=== PATIENT | female | born 1990 | race Caucasian/White ===

== ENCOUNTER 2025-05-24 19:25 | Inpatient (IN) ==
--- NOTE | 2025-05-24 20:05 | Emergency Department Note ---
Impression & Plan Depression, Acute cystitis ED Provider Note NAME: AUSTIN AIKEN AGE: 35 SEX: F : 1990 ARRIVES VIA: Walk-In INFORMANT: Patient, ED PROVIDER(S): Uriel Diana DO CHIEF COMPLAINT: psychiatric evaluation HPI: This is a 35-year-old female with the PMHx of depression, anxiety and panic disorder presenting to [facility] for further evaluation of psychiatric evaluation. Patient reports increase stressors at home as well as financial constraints. She reports intrusive suicidal ideation without plan. She states that she is on minimal medications. She does follow with a primary care physician/therapist. They state that she may have bipolar disorder. She does not have a psychiatrist. No access to weapons or firearms in the home. Patient states that she is seeking inpatient hospitalization. Patient denies any recreational drug use. She denies any alcohol use. Patient denies any auditory or visual hallucinations. No homicidal ideations. No prior inpatient admissions. Patient offers no other complaints, today. ADDITIONAL HISTORY OBTAINED: Per HPI Chronic Medical/Social Conditions Affecting Care: Per HPI PAST MEDICAL HISTORY: See Below PAST SURGICAL HISTORY: See Below FAMILY HISTORY: See Below SOCIAL HISTORY: See Below HOME MEDICATIONS: See Below ALLERGIES: See Below VITALS: See Below PHYSICAL EXAMINATION: GENERAL: Alert, well developed, well nourished, no acute distress HEAD: Normocephalic, atraumatic EYES: EOM's intact, sclera anicteric, conjunctiva clear OROPHARYNX: Airway patent and mucous membranes moist LUNGS: No respiratory distress, normal respiratory rate and effort HEART: Well perfused, regular rate ABDOMEN: Abdomen non-distended SKIN: Normal color, dry EXTREMITIES: No gross deformities, no edema NEURO: Alert, oriented x3, appropriate for age, moves all four extremities, normal speech PSYCH: depressed mood MEDICAL DECISION MAKING: Differential diagnoses includes but not limited to suicidal ideation, homicidal ideation, hallucinations, depression, anxiety, personality disorder In summary, this is a 35-year-old who presented with worsening depression with suicidal ideations. Differential as above. Nursing notes and pertinent past medical records reviewed. Vital signs reviewed and the patient is afebrile and HDS. History, physical obtained and significant for depression and anxiety. Psychiatric labs including CBC, CMP, ethanol, COVID-19, U tox ordered to evaluate for their symptoms. Mild anemia present. Some evidence of UTI on urinalysis. She does have symptoms. Bactrim twice daily for 5 days ordered for acute cystitis. Ethanol minimally elevated. MDMA screen is positive. Likely false positive. Labs unremarkable to explain symptoms. 201 signed after discussion and informed consent with the patient. Patient is medically appropriate for psychiatric evaluation. Based on the above, including the patient's age, coexisting illnesses, labs, imaging, and exam findings the decision to treat as an inpatient but I do not feel the patient necessarily needs to stay in the hospital. If the patient requests to leave, the patient can be safely discharged with a safety plan. I discussed my findings with the patient and they understand and agree with the treatment plan. Vitals Q shift ordered. FIBER ANALYST medications were not ordered at the patient's request due to insurance issues. Care Management consulted. Diet ordered with suicide precautions and one-to-one precautions. Patient was signed out to Dr. Daniel. Patient will hopefully be accepted to [facility] in the AM. Consults/Care Managements Discussions: Per [facility] ER treatment provided: See above Procedures:none Critical Care: None The chart was completed utilizing [employer] Speech voice recognition software. Grammatical errors, random word insertions, pronoun errors, and incomplete sentences are an occasional consequence of this system due to software limitations, ambient noise, and hardware issues. Any formal questions or concerns about the content, text, or information contained within the body of this dictation should be directly addressed to the physician for clarification. Past Med/Surg History Problem List Acute cystitis (Acute) Depression (Acute) Musculoskeletal chest pain (Acute) Social History Smoking Status: Never smoker Preferred Language: Niuean Feels Safe at Home: Yes Gender Identity: Female Allergies Allergies Allergy/AdvReac Type Severity Reaction Status Date / Time No Known Allergies Allergy Unverified 12/23/15 19:23 Home Meds Home Medications Medication Instructions Recorded Confirmed bupropion HCl 300 mg 24 hr tablet, 300 mg PO DAILY 05/24/25 05/24/25 extended release clonazepam 0.5 mg tablet 0.5 mg PO 1XD PRN Anxiety 05/24/25 05/24/25 desvenlafaxine 100 mg 100 mg PO DAILY 05/24/25 05/24/25 tablet,extended release 24 hr propranolol 10 mg tablet 10 mg PO BID 05/24/25 05/24/25 quetiapine 50 mg tablet 50 mg PO HS PRN Sleep 05/24/25 05/24/25 Results & Data (ED) Vital Signs Vital Signs - 24 hr 05/24/25 19:37 05/24/25 23:47 Temperature 36.8 C Temperature Source Temporal Artery Scan Pulse Rate 93 H Pulse Rhythm Regular Pulse Strength Normal Respiratory Rate 18 16 Respiratory Effort / Characteristics Non-Labored Spontaneous Non-Labored Spontaneous Respiratory Depth Normal Normal Respiratory Pattern Regular Regular Blood Pressure 134/75 Blood Pressure Mean 94 Blood Pressure Position Sitting Pulse Oximetry 99 Oxygen Delivery Method Room Air Sepsis Recent Fever Within 48 Hours No Sepsis New/Unexplained Change in Mental Status No Sepsis Action Taken by Nursing No Action Required Laboratory Data 05/24/25 20:16 05/24/25 20:16 Lab Results 05/24/25 Range/Units 20:16 WBC 6.92 (4.8-10.8) K/ul RBC 3.53 L (4.20-5.40) M/uL Hgb 11.8 L (12.0-16.0) g/dl Hct 34.5 L (37.0-47.0) % MCV 97.7 (80.0-100.0) fL MCH 33.4 (25.0-34.0) pg MCHC 34.2 (32.0-36.0) g/dL RDW Std Deviation 45.7 (36.4-46.3) fL RDW Coeff of Tamera 13.1 (11.5-14.5) % Plt Count 188 (130-400) K/uL MPV 9.3 L (9.4-12.4) fL Immature Gran % (Auto) 0.3 % Neut % (Auto) 68.7 % Lymph % (Auto) 23.4 % [place] % (Auto) 5.9 % Eos % (Auto) 1.0 % Baso % (Auto) 0.7 % Neut # (Auto) 4.75 (1.40-6.50) K/uL Lymph # (Auto) 1.62 (1.20-3.40) K/uL [place] # (Auto) 0.41 (0.11-0.59) K/uL Eos # (Auto) 0.07 (0.00-0.50) K/uL Baso # (Auto) 0.05 (0.00-0.20) K/uL Immature Gran # (Auto) 0.02 (0.01-0.20) K/uL Sodium 137 (136-145) mmol/L Potassium 3.7 (3.5-5.1) mmol/L Chloride 106 (98-107) mmol/L Carbon Dioxide 22 (21-32) mmol/L Anion Gap 9 (3-11) BUN 7 (6-23) mg/dl Creatinine 0.57 L (0.6-1.2) mg/dl Est Cr Clr Drug Dosing 136.5 ml/min eGFR 122.98 BUN/Creatinine Ratio 12.3 (10-20) Glucose 80 (70-99(Fasting)) mg/dl Calcium 9.6 (8.6-10.3) mg/dl Total Bilirubin 0.6 (0.2-1.0) mg/dl AST 25 (13-39) U/L ALT 18 (7-52) U/L Alkaline Phosphatase 45 (34-104) U/L Total Protein 7.2 (6.0-8.3) gm/dl Albumin 4.5 (3.4-5.0) gm/dl Globulin 2.7 (2.5-4.0) gm/dl Albumin/Globulin Ratio 1.7 (0.9-2) TSH 1.594 (0.300-4.500) uIu/ml HCG, Qual Negative (Negative) Urine Color Yellow Urine Appearance Cloudy A (Clear) Urine pH 6.5 (4.5-7.5) Ur Specific [place] 1.006 (1.000-1.030) Urine Protein Negative (Negative) Urine Glucose (UA) Negative (Negative) Urine Ketones 1+ H (Negative) Urine Blood Negative (Negative) Urine Nitrite Negative (Negative) Urine Bilirubin Negative (Negative) Urine Urobilinogen Negative (Negative) Ur Leukocyte Esterase 3+ H (Negative) Urine WBC (Auto) 21-50 H (0-5) /hpf Urine RBC (Auto) 0-2 (0-2) /hpf U Hyaline Cast (Auto) 0-2 (0-2) /lpf U Epithel Cells (Auto) >20 H (0-2) /hpf Urine Bacteria (Auto) 1+ H (None Seen) Urine Comment Salicylates < 3.0 L (3.0-30) mg/dl Urine Opiates Screen Neg (Neg) Ur Methadone, Qual Neg (Neg) Urine Fentanyl Screen Neg (Neg) Acetaminophen < 3 L (10-30) ug/ml Urine Barbiturates Neg (Neg) Ur Phencyclidine (PCP) Neg (Neg) U Amphetamin/Meth Scrn Neg (Neg) MDMA (Ecstasy) Screen Pos H (Neg) U Benzodiazepines Scrn Neg (Neg) Ur Cocaine Metabolite Neg (Neg) U Marijuana (THC) Screen Neg (Neg) Ethyl Alcohol mg/dL 24.7 H (<10.0) mg/dl SARS-CoV-2, RNA, NAAT NEGATIVE (NEGATIVE) Discharge Plan Visit Data Chief Complaint: Mental Health Evaluation Stated Complaint: BEHAVIORAL HEALTH CHECK IN AND UTI ED Provider: Uriel Diana Discharge Problem: Depression, Acute cystitis Patient Disposition: Transfer Acute Care Hospital Condition: Good Forms Stand Alone Forms: My [facility], Suicide Prevention Resources Prescriptions Prescriptions: No Action clonazepam 0.5 mg Tablet 0.5 mg PO 1XD PRN (Reason: Anxiety) propranolol 10 mg Tablet 10 mg PO BID bupropion HCl 300 mg Tablet Extended Release 24 Hr 300 mg PO DAILY quetiapine 50 mg Tablet 50 mg PO HS PRN (Reason: Sleep) desvenlafaxine 100 mg Tablet Extended Release 24 Hr 100 mg PO DAILY Referrals Referrals: PCP,NO [Primary Care Provider] -
[2025-05-24 20:30] LABS: Hematocrit (blood only) 34.5 % (37.0-47.0); Hemoglobin 11.8 g/dl (12.0-16.0); Immature Granulocytes # (auto) 0.02 K/uL (0.01-0.20); Immature Granulocytes % (auto) 0.3 %; Mean Corpuscular Hemoglobin 33.4 pg (25.0-34.0); Mean Corpuscular Volume 97.7 fL (80.0-100.0); Platelet Count 188 K/uL (130-400); RDW Standard Deviation 45.7 fL (36.4-46.3); Red Blood Count 3.53 M/uL (4.20-5.40); White Blood Count 6.92 K/ul (4.8-10.8)
[2025-05-24 20:40] LABS: Appearance Urine Cloudy (Clear); Bacteria Urine Automated 1+ (None Seen); Cast Urine Automated 0-2 /lpf (0-2); Epithelial Cell Urine Auto >20 /hpf (0-2); Glucose Urine UA Negative (Negative); RBC Urine Automated 0-2 /hpf (0-2); WBC Urine Automated 21-50 /hpf (0-5)
[2025-05-24 20:55] LABS: Anion Gap 9.0 (3-11); Bilirubin,Total 0.6 mg/dl (0.2-1.0); Calcium 9.6 mg/dl (8.6-10.3); Carbon Dioxide 22.0 mmol/L (21-32); Chloride 106.0 mmol/L (98-107); Potassium 3.7 mmol/L (3.5-5.1); Sodium 137.0 mmol/L (136-145)
[2025-05-24 21:00] LABS: Pregnancy Test, Serum Negative (Negative)
[2025-05-24 21:01] LABS: Alanine Aminotransferase 18.0 U/L (7-52); Albumin Globulin Ratio 1.7 (0.9-2); Alkaline Phosphatase 45.0 U/L (34-104); Blood Urea Nitrogen 7.0 mg/dl (6-23); Creatinine Clr Calc Pharmacy 136.5 ml/min; Globulin 2.7 gm/dl (2.5-4.0); Glucose 80.0 mg/dl (70-99(Fasting)); Total Protein 7.2 gm/dl (6.0-8.3)
[2025-05-24 21:05] LABS: Acetaminophen < 3 ug/ml (10-30); Amphetamines+Metham, Urine Neg (Neg); MDMA (Ecstacy), Urine Pos (Neg); Marijuana, Urine Neg (Neg); Salicylate < 3.0 mg/dl (3.0-30)
[2025-05-24 21:58] LABS: Thyroid Stimulating Hormone 1.594 uIu/ml (0.300-4.500)
--- NOTE | 2025-05-25 03:50 | Emergency Department Note ---
ED Visit Note Date and Time: 05/25/2025 100 Interval History: Sign out received from Dr. Diana who reviewed details of the encounter. Patient was pending evaluation by 3 S. Summary: patient is depressed and is a voluntary admission for inpatient psychiatric care. She has rested comfortably overnight and will have an evaluation first thing in the morning Disposition: the case was signed out to Dr. Smith at change of shift awaiting evaluation by 3 S. .
--- NOTE | 2025-05-25 06:07 | Emergency Department Note ---
ED Visit Note I assumed care at the change of shift. She had already been deemed medically clear. The patient was awaiting a psychiatric evaluation by 3 S. for potential voluntary psychiatric admission. The patient was seen by 3 S. and has been accepted to their floor as a voluntary secondary admission. The appropriate paperwork was completed and signed. .
[2025-05-25] MEDS: SULFAMETHOXAZOLE/TRIMETHOPRIM DS 800/160MG TAB PO SCH (08:53)
[2025-05-25] MEDS ORDERED: MAGNESIUM HYDROXIDE SUSP 30 ML UDC PO PRN (12:47)
[2025-05-25] MEDS ORDERED: BISMUTH SUBSALICYLATE 262 MG CHEW PO PRN (12:47)
[2025-05-25] MEDS ORDERED: SODIUM CHLORIDE 0.65% NA SOLN 45 ML (OCEAN) PRN (12:47)
[2025-05-25] MEDS ORDERED: clonazePAM 0.5 MG TAB PO PRN (15:27)
--- NOTE | 2025-05-25 15:31 | History & Physical ---
Date of Service May 25, 2025 Impression / Recommendations Impression AUSTIN AIKEN is a 35-year-old woman who currently lives in [facility] alone, has a history of LOPEZ, depression, panic disorder, and was admitted on 05/25/25 11:37 on a 201 voluntary commitment for worsening depression, anxiety and SI with plans and inability to function. Diagnostically consistent with bipolar affective disorder type II current depressive episode given history of hypomanic episodes in the past versus major depressive disorder with suicidal ideation as well as LOPEZ, social anxiety and panic disorder. Discussed medication treatment options in detail. Reviewed risks, benefits and alternatives. Patient consents to medication adjustments including discontinuing Wellbutrin 300mg daily due to potential anxiety exacerbation. Continuing Pristiq for depression. Initiating mirtazapine at bedtime for depression, anxiety, and sleep disturbance. Starting low-dose lithium at bedtime for mood stabilization given suspicion for bipolar affective disorder type II and suicidality. Increasing propranolol to three times daily for physical anxiety symptoms with monitoring of blood pressure and heart rate. Continuing Klonopin up to twice daily as needed for panic attacks. Discontinuing as-needed Seroquel given safer alternatives for sleep. Reviewed side effects including but not limited to: sedation and weight gain with mirtazapine; low blood pressure, syncope and fatigue with propranolol; sedation, dependency risk, cognitive impairment, potential for fatal respiratory suppression if combined with alcohol with clonazepam; GI, TREJO, sexual side effects with Pristiq; baseline labs of thyroid function, kidney function, weight, electrolytes, CBC, and UA were preformed and reviewed, educated on risks of dehydration, renal, thyroid, cardiac, drug interactions (NSAIDs, ACEIs, angiotensin receptor antagonists, risks). Overall I spent a total of 80 minutes for this admission including review of chart records, review of labwork, direct evaluation of the patient, counseling the patient, ordering medication, risk assessment, discussion with the psychiatric liason RN and documentation in the electronic health record. (1) Bipolar 2 disorder: (2) Depression with suicidal ideation: (3) Generalized anxiety disorder with panic attacks: (4) Panic disorder: Plan 05/25/2025: The patient was admitted to the [facility] unit) on q15 min checks (behavioral with suicide precautions) for safety. The patient will participate in group, recreational, and milieu therapies and will be offered additional individual and family sessions as clinically appropriate. -Start [place] 300mg HS po -Start mirtazapine 15mg HS po -Increase propranolol 10mg TID po -Continue Pristiq 100mg daily -Discontinue Seroquel -Discontinue Wellbutrin -Symptom questionnaires: REDD, PHQ-9, LOPEZ-7, MDQ, Jack BPD Inventory Assets Strengths: supportive relationships, willing to get treatment Needs: safety and stabilization, medication adjustment, additional coping skills, increased outpatient services Suicide Risk Level Suicide Risk Level: High-Moderate (q15 min suicide checks) (depression with SI and anxiety with panic attacks but feels safe in the hospital and feels able to ask for support ) Risk Factors Assessment Male: No : Yes Do You Have Access To A Gun?: No Health Problems: No Mental Health Diagnoses: Yes Substance Use Disorders: No Previous Attempt: Yes Family History of Suicide: No Previous Psychiatric Hospitalization: Yes Hopelessness: Yes Protective Factors Assessment Employed: Yes ([employer]) Stable Relationships: Yes Supportive Family: Yes Psychiatric History Identifying Data AUSTIN AIKEN is a 35-year-old woman who currently lives in [facility] alone, has a history of LOPEZ, depression, panic disorder, and was admitted on 05/25/25 11:37 on a 201 voluntary commitment for worsening depression, anxiety and SI with plans and inability to function. Chief Complaint "I hit a wall and just couldn't go to work so I haven't been able to work". History of Present Illness Depression and anxiety worsened starting about 2-3 weeks ago in the context of financial and work stress and some outstanding legal issues with owed back payments from her previous employment. SI started about two weeks ago with plans of cutting her carotid artery or overdosing on pills. She identifies target symptoms as: morning anxiety because this spirals throughout the day, the social isolation and being able to do normal daily tasks without freezing and getting caught in a snowball effect of not being able to do things like making phone calls. Her mood symptoms have spiraled to the point that she hasn't been able to go to work for the last week. 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 SI has been occurring daily intermittently but have been intensifying and at times this feels like "the only option". She also endorses symptoms of anxiety including generalized worries, physical sensation of being dropped suddenly through the air, shakiness, easily overwhelmed and panic attacks at least daily. She is currently prescribed psychiatric medications: Wellbutrin XL 300mg daily (has been on this for 3-4 years), Pristiq 100mg daily (has been on this for 2 years), propranolol 10mg BID for anxiety, Klonopin 0.5mg daily prn for panic attacks and Seroquel 50mg HS prn for insomnia. Psychiatric ROS notable for history of going 1-2 nights without sleeping and gets a lot done, is very productive, gets a lot of big ideas, mood is elevated. No current nor history of symptoms of psychosis, PTSD, OCD. History of anorexia and bulimia as a teen, stable now. History of self-harm via cutting, last beginning of March. Past Psychiatric History Current Psychiatric Diagnosis: MDD, LOPEZ, Panic Disorder Outpatient Services: therapist via [place] normally every two weeks but has missed the last two sessions due to depression Previous Psych Admissions: 3 times: last [address] [facility] Do You Have Access To A Gun?: No History of Previous Suicide Attempt: Yes Describe Attempts in the Past: age 21 via hydrocodone Past Medication Trials: TMS-helpful Ketamine-during the treatment increased anxiety Lexapro had a lot of weight gain fluoxetine duloxetine Vistaril-not very effective for sleep Past Head Trauma/Neuro History multiple prior concussions Allergies Allergy/AdvReac Type Severity Reaction Status Date / Time contrast dye Allergy Intermediate Rash Uncoded 05/25/25 15:52 Home Medications Medication Instructions Recorded Confirmed Type bupropion HCl 300 mg 24 hr tablet, 300 mg PO DAILY 05/24/25 05/24/25 History extended release clonazepam 0.5 mg tablet 0.5 mg PO 1XD PRN Anxiety 05/24/25 05/24/25 History desvenlafaxine 100 mg 100 mg PO DAILY 05/24/25 05/24/25 History tablet,extended release 24 hr propranolol 10 mg tablet 10 mg PO BID 05/24/25 05/24/25 History quetiapine 50 mg tablet 50 mg PO HS PRN Sleep 05/24/25 05/24/25 History Family History Family History of: Depression (father) and Anxiety (father) Alcohol History Hx of Alcohol Use Over the Past 12 Months: Yes (social, +- 3 x a week, no hx wi thdrawal) AUDIT Total Score: 5 Smoking Use Have You Smoked or Used Tobacco Products in the Last 30 Days: No Smoking Status: Never smoker Substance History Hx of Prescription Med Misuse Over the Past 12 Months: No Hx of Over the Counter Med Misuse Over the Past 12 Months: No Hx of Inhalent Misuse Over the Past 12 Months: No Hx of Organic Substance Use Over the Past 12 Months: No Hx of Illegal Substances/Street Drug Use Over Past 12 Months: No Problems as a Result of Past Substance Use: None Identified Personal History Living Arrangements: Home Highest Grade Completed: Some College Employment Status: Film Editor Employed Marital Status: Living w/ Signif. Other (in a relationship but not living together) Beliefs That Will Affect Care: None Hx Traumatic Life Events: Yes (childhood) Patient History Social History Smoking Status: Never smoker Preferred Language: Kazakh Communication Ability: Effective Yardage Control Clerk Required: No Beliefs That Will Affect Care: None Feels Safe at Home: Yes Gender Identity: Female Assistive Devices: None Review of Systems Review of Systems: All systems reviewed & are unremarkable except as noted in HPI & below Physical Exam Psychiatric: Orientation: alert and oriented x 3 Apperance: appropriately dressed and appropriately groomed Eye Contact: good eye contact Motor Behavior: no abnormal motor movements Speech: normal rate/rhythm/volume of speech Affect: + depressed affect and + anxious affect Mood: + depressed mood and + anxious mood Thought Process: goal directed thought process Thought Content: reality based without delusions Suicidal Thoughts: denies suicidal intent; + reports suicidal thoughts and + reports suicidal plan (none for hospital, some for outside hospital) Homicidal Thoughts: denies homicidal thoughts Hallucinations: no auditory hallucinations and no visual hallucinations Cognition: recent memory grossly intact, remote memory grossly intact, attention grossly intact and language grossly intact Estimated Intelligence: consistent with education level Insight: + fair insight Judgment: + fair judgement Vital Signs (Past 24 Hours): Last Vital Signs Temp 36.7 C 05/25/25 12:52 Pulse 65 05/25/25 12:52 Resp 16 05/25/25 12:52 BP 116/83 05/25/25 12:52 Pulse Ox 99 05/25/25 12:52 O2 Del Method Room Air 05/25/25 12:52 Exam Statement: A physical exam was performed in the ED by Dr. Diana for the purposes of medical clearance. I accept that physical as correct and adequate for the purposes of the inpatient physical exam. Results & Data ([facility]) Laboratory Results Laboratory Results - last 24 hr 05/24/25 20:16 WBC 6.92 RBC 3.53 L Hgb 11.8 L Hct 34.5 L MCV 97.7 MCH 33.4 MCHC 34.2 RDW Std Deviation 45.7 RDW Coeff of Tamera 13.1 Plt Count 188 MPV 9.3 L Immature Gran % (Auto) 0.3 Neut % (Auto) 68.7 Lymph % (Auto) 23.4 [place] % (Auto) 5.9 Eos % (Auto) 1.0 Baso % (Auto) 0.7 Neut # (Auto) 4.75 Lymph # (Auto) 1.62 [place] # (Auto) 0.41 Eos # (Auto) 0.07 Baso # (Auto) 0.05 Immature Gran # (Auto) 0.02 Sodium 137 Potassium 3.7 Chloride 106 Carbon Dioxide 22 Anion Gap 9 BUN 7 Creatinine 0.57 L Est Cr Clr Drug Dosing 136.5 eGFR 122.98 BUN/Creatinine Ratio 12.3 Glucose 80 Calcium 9.6 Total Bilirubin 0.6 AST 25 ALT 18 Alkaline Phosphatase 45 Total Protein 7.2 Albumin 4.5 Globulin 2.7 Albumin/Globulin Ratio 1.7 TSH 1.594 HCG, Qual Negative Urine Color Yellow Urine Appearance Cloudy A Urine pH 6.5 Ur Specific [place] 1.006 Urine Protein Negative Urine Glucose (UA) Negative Urine Ketones 1+ H Urine Blood Negative Urine Nitrite Negative Urine Bilirubin Negative Urine Urobilinogen Negative Ur Leukocyte Esterase 3+ H Urine WBC (Auto) 21-50 H Urine RBC (Auto) 0-2 U Hyaline Cast (Auto) 0-2 U Epithel Cells (Auto) >20 H Urine Bacteria (Auto) 1+ H Urine Comment Salicylates < 3.0 L Urine Opiates Screen Neg Ur Methadone, Qual Neg Urine Fentanyl Screen Neg Acetaminophen < 3 L Urine Barbiturates Neg Ur Phencyclidine (PCP) Neg U Amphetamin/Meth Scrn Neg Urine MDEA Pending MDMA (Ecstasy) Screen Pos H MDMA Pending Urine MDMA Pending U Benzodiazepines Scrn Neg Ur Cocaine Metabolite Neg U Marijuana (THC) Screen Neg Ethyl Alcohol mg/dL 24.7 H SARS-CoV-2, RNA, NAAT NEGATIVE Current Inpatient Medications Current Inpatient Medications: Current Inpatient Medications Acetaminophen (Acetaminophen 325 Mg Tab) 650 mg PO Q4H PRN PRN Reason: Headache or Minor Fever Stop: 06/24/25 12:46 Al Hydrox/Mg Hydrox/Simethicone (Aluminum/Magnesium Susp 30 Ml Udc) 30 ml PO Q4H PRN PRN Reason: GI Upset Stop: 06/24/25 12:46 Bismuth Subsalicylate (Bismuth Subsalicylate 262 Mg Chew) 2 tab PO Q30M PRN PRN Reason: Loose Stool/Diarrhea Stop: 06/24/25 12:46 Hydroxyzine HCl (Hydroxyzine Hcl 25 Mg Tab) 50 mg PO HSZ PRN PRN Reason: Insomnia Stop: 06/24/25 12:46 Hydroxyzine HCl (Hydroxyzine Hcl 25 Mg Tab) 25 mg PO Q4H PRN PRN Reason: Anxiety Stop: 06/24/25 12:46 Magnesium Hydroxide (Magnesium Hydroxide Susp 30 Ml Udc) 30 ml PO DAILY PRN PRN Reason: Constipation Stop: 06/24/25 12:46 Sodium Chloride (Sodium Chloride 0.65% Na Soln 45 Ml ([place])) 1 - 2 sprays NA PRN PRN PRN Reason: Nasal Dryness/Congestion Stop: 06/24/25 12:46
[2025-05-25] MEDS: PROPRANOLOL HCL 10 MG TAB PO SCH (16:11)
[2025-05-25] MEDS: DESVENLAFAXINE SUCCINATE ER TABLET PO SCH (16:51)
[2025-05-25] MEDS: clonazePAM 0.5 MG TAB PO PRN (19:09)
[2025-05-25] MEDS ORDERED: PROPRANOLOL HCL 10 MG TAB PO SCH (21:00)
[2025-05-25] MEDS: LITHIUM CARBONATE 300 MG TAB PO SCH (21:31)
[2025-05-25] MEDS: MIRTAZAPINE TAB 15 MG TAB PO SCH (21:31)
--- NOTE | 2025-05-26 09:10 | Psychiatric Progress Note ---
Date of Service May 26, 2025 Impression / Recommendations Impression AUSTIN AIKEN is a 35-year-old woman who currently lives in [facility] alone, has a history of LOPEZ, depression, panic disorder, and was admitted on 05/25/25 11:37 on a 201 voluntary commitment for worsening depression, anxiety and SI with plans and inability to function. Diagnostically consistent with bipolar affective disorder type II current depressive episode given history of hypomanic episodes in the past versus major depressive disorder with suicidal ideation as well as LOPEZ, social anxiety and panic disorder. A: Mood improving slightly today after sleeping more last night with mirtazapine. Tolerating [place] so far. Ongoing SI and continues to appear depressed and anxious. Reviewed symptom questionnaires which are notable for PHQ-9 score of: 22 (and 3 for Q9), LOPEZ-7: 18, REDD: 5, MDQ: positive, Jack positive. Provided psychoeducation about borderline personality disorder and overlap with depression and bipolar affective disorder. Discussed BPD as a possibility but will be easier to rule in vs out as severe depression is treated over time. Reviewed online free DBT resource and psyoeducation about DBT. She consents to starting Bactrim for UTI. Overall, I spent a total of 50 minutes on this case including meeting with the patient, reviewing the chart, nursing report, multidisciplinary team meeting, orders, and documentation. (1) Bipolar 2 disorder: (2) Depression with suicidal ideation: (3) Generalized anxiety disorder with panic attacks: (4) Panic disorder: Plan 05/26/2025: -Start Bactrim BID for 3 days 05/25/2025: The patient was admitted to the [facility] ([facility] mental health unit) on q15 min checks (behavioral with suicide precautions) for safety. The patient will participate in group, recreational, and milieu therapies and will be offered additional individual and family sessions as clinically appropriate. -Start [place] 300mg HS po -Start mirtazapine 15mg HS po -Increase propranolol 10mg TID po -Continue Pristiq 100mg daily -Discontinue Seroquel -Discontinue Wellbutrin -Symptom questionnaires: REDD, PHQ-9, LOPEZ-7, MDQ, Jack BPD Inventory Assets Strengths: supportive relationships, willing to get treatment Needs: safety and stabilization, medication adjustment, additional coping skills, increased outpatient services Suicide Risk Level Suicide Risk Level: High-Moderate (q15 min suicide checks) (depression with SI and anxiety with panic attacks but feels safe in the hospital and feels able to ask for support ) Risk Factors Assessment Male: No : Yes Do You Have Access To A Gun?: No Health Problems: No Mental Health Diagnoses: Yes Substance Use Disorders: No Previous Attempt: Yes Family History of Suicide: No Previous Psychiatric Hospitalization: Yes Hopelessness: Yes Protective Factors Assessment Employed: Yes ([employer]) Stable Relationships: Yes Supportive Family: Yes Interval History Identifying Information AUSTIN AIKEN is a 35-year-old woman who currently lives in [facility] alone, has a history of LOPEZ, depression, panic disorder, and was admitted on 05/25/25 11:37 on a 201 voluntary commitment for worsening depression, anxiety and SI with plans and inability to function. Chief Complaint "OK". Review of Systems Sleep Information Total Hours of Sleep: 7 Meal Information Percent Meal Consumed - Dinner: 25 Subjective Subjective Patient was seen & assessed and interval progress reviewed with treatment team. Had a visit with her boyfriend, was tearful after he left. Declined some groups but later did watch a movie with peers and attended community meeting rated her mood as "distressed". Didn't eat many meals yesterday. Today reports her mood is "ok". Slept well overnight with mirtazapine and had less anxiety this morning which allowed her to shower and she feels she has better "mental clarity" today. No excessive sedation like she had with Seroquel in the past. Still with anxiety and depression. Some lessening of SI. No side effects so far from the Fruit Cove. Is having burning with urination and thinks she has a UTI. Physical Exam Psychiatric Orientation: alert and oriented x 3 Apperance: appropriately dressed and appropriately groomed Eye Contact: good eye contact Motor Behavior: no abnormal motor movements Speech: normal rate/rhythm/volume of speech Affect: + depressed affect and + anxious affect Mood: + depressed mood and + anxious mood Thought Process: goal directed thought process Thought Content: reality based without delusions Suicidal Thoughts: denies suicidal intent; + reports suicidal thoughts and + reports suicidal plan (none for hospital, some for outside hospital) Homicidal Thoughts: denies homicidal thoughts Hallucinations: no auditory hallucinations and no visual hallucinations Cognition: recent memory grossly intact, remote memory grossly intact, attention grossly intact and language grossly intact Estimated Intelligence: consistent with education level Insight: + fair insight Judgment: + fair judgement Vital Signs (Past 24 Hours) Last Vital Signs Temp 36.7 C 05/26/25 06:35 Pulse 71 05/26/25 06:35 Resp 16 05/26/25 06:35 BP 105/72 05/26/25 06:35 Pulse Ox 99 05/25/25 12:52 O2 Del Method Room Air 05/25/25 12:52 Results & Data ([facility]) Current Inpatient Medications Current Inpatient Medications: Current Inpatient Medications Acetaminophen (Acetaminophen 325 Mg Tab) 650 mg PO Q4H PRN PRN Reason: Headache or Minor Fever Stop: 06/24/25 12:46 Al Hydrox/Mg Hydrox/Simethicone (Aluminum/Magnesium Susp 30 Ml Udc) 30 ml PO Q4H PRN PRN Reason: GI Upset Stop: 06/24/25 12:46 Bismuth Subsalicylate (Bismuth Subsalicylate 262 Mg Chew) 2 tab PO Q30M PRN PRN Reason: Loose Stool/Diarrhea Stop: 06/24/25 12:46 Clonazepam (Clonazepam 0.5 Mg Tab) 0.5 mg PO BID PRN PRN Reason: panic attacks Stop: 06/24/25 15:26 Last Admin: 05/25/25 21:35 Dose: 0.5 mg Desvenlafaxine Succinate (Desvenlafaxine Succinate Er Tablet) 1 tab PO DAILY RAGINI Stop: 06/24/25 16:29 Last Admin: 05/25/25 16:51 Dose: 1 tab Hydroxyzine HCl (Hydroxyzine Hcl 25 Mg Tab) 50 mg PO HSZ PRN PRN Reason: Insomnia Stop: 06/24/25 12:46 Hydroxyzine HCl (Hydroxyzine Hcl 25 Mg Tab) 25 mg PO Q4H PRN PRN Reason: Anxiety Stop: 06/24/25 12:46 [place] C[place] Carbonate ([place] Carbonate 300 Mg Tab) 300 mg PO HS RAGINI Stop: 06/24/25 21:59 Last Admin: 05/25/25 21:31 Dose: 300 mg Magnesium Hydroxide (Magnesium Hydroxide Susp 30 Ml Udc) 30 ml PO DAILY PRN PRN Reason: Constipation Stop: 06/24/25 12:46 Mirtazapine (Mirtazapine Tab 15 Mg Tab) 15 mg PO HS RAGINI Stop: 06/24/25 21:59 Last Admin: 05/25/25 21:31 Dose: 15 mg Propranolol HCl (Propranolol Hcl 10 Mg Tab) 10 mg PO TID RAGINI Stop: 06/24/25 15:54 Last Admin: 05/25/25 21:31 Dose: 10 mg Sodium Chloride (Sodium Chloride 0.65% Na Soln 45 Ml ([place])) 1 - 2 sprays NA PRN PRN PRN Reason: Nasal Dryness/Congestion Stop: 06/24/25 12:46 Mental Health & Subst Abuse Tx Psychiatrist Date Of Appointment With Psychiatric Provider: NA Therapist Name of Therapist: ROSANNA SANDERS @ [facility] Head Custodian Name of Head Custodian: VINAYAK Post Discharge Appointments Primary Care Physician Name Of Family Doctor/PCP: Dr. Livingston @ [facility]
[2025-05-26] MEDS: ACETAMINOPHEN 325 MG TAB PO PRN (13:02)
[2025-05-26] MEDS: SULFAMETHOXAZOLE/TRIMETHOPRIM DS 800/160MG TAB PO SCH (13:53)
[2025-05-26] MEDS: ALUMINUM/MAGNESIUM SUSP 30 ML UDC PO PRN (14:47)
[2025-05-26] MEDS: DESVENLAFAXINE SCH (17:39)
--- NOTE | 2025-05-27 09:01 | Psychiatric Progress Note ---
Date of Service May 27, 2025 Impression / Recommendations Impression AUSTIN AIKEN is a 35-year-old woman who currently lives in [facility] alone, has a history of LOPEZ, depression, panic disorder, and was admitted on 05/25/25 11:37 on a 201 voluntary commitment for worsening depression, anxiety and SI with plans and inability to function. Diagnostically consistent with bipolar affective disorder type II current depressive episode given history of hypomanic episodes in the past versus major depressive disorder with suicidal ideation as well as LOPEZ, social anxiety and panic disorder. Overall, I spent a total of 35 minutes on this case including meeting with the patient, reviewing the chart, nursing report, multidisciplinary team meeting, orders, and documentation. (1) Bipolar 2 disorder: (2) Depression with suicidal ideation: (3) Generalized anxiety disorder with panic attacks: (4) Panic disorder: Plan 05/27/25: Continues to tolerate medications well. No medication changes today. Seeing improvement in mood and anxiety, as well as sleep. Family meeting scheduled for tomorrow a.m., and will plan for discharge after. Weekend discharge due to risks to her job if she does not attend on Thursday. She is aware this may mean we need to call her with appointments for her follow-up. 05/26/2025: -Start Bactrim BID for 3 days 05/25/2025: The patient was admitted to the [facility] ([facility]) on q15 min checks (behavioral with suicide precautions) for safety. The patient will participate in group, recreational, and milieu therapies and will be offered additional individual and family sessions as clinically appropriate. -Start Carmine 300mg HS po -Start mirtazapine 15mg HS po -Increase propranolol 10mg TID po -Continue Pristiq 100mg daily -Discontinue Seroquel -Discontinue Wellbutrin -Symptom questionnaires: REDD, PHQ-9, LOPEZ-7, MDQ, Jack BPD Inventory Assets Strengths: supportive relationships, willing to get treatment Needs: safety and stabilization, medication adjustment, additional coping skills, increased outpatient services Suicide Risk Level Suicide Risk Level: High-Moderate (q15 min suicide checks) (depression with SI and anxiety with panic attacks but feels safe in the hospital and feels able to ask for support ) Suicide Risk Level Comments: High-Moderate due to severe depression with SI with plan prior to admission but feels safe in the hospital, able to safety contract and agrees to let nursing/staff know should they develop plan, intent or feel unable to remain safe. 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 alone, has a history of LOPEZ, depression, panic disorder, and was admitted on 05/25/25 11:37 on a 201 voluntary commitment for worsening depression, anxiety and SI with plans and inability to function. Chief Complaint "[]". Review of Systems Sleep Information Total Hours of Sleep: 6.5 Meal Information Percent Meal Consumed - Lunch: 60 Percent Meal Consumed - Dinner: 100 Subjective Subjective Patient was seen & assessed and interval progress reviewed with nursing and social work. Per nursing staff, patient isolated the first day, but has been attending groups now for the past 2 days. she reports her mood improved to an 8 out of 10. She showered and maintain ADLs yesterday without prompting. She slept 6.5 hours. Family meeting was scheduled for tomorrow morning. She continues to express concern about having to miss work on Thursday, as she was already off all week last week without pay, and is unsure if her work will allow her to miss more time without putting her job at risk. I met with the patient in her room. She reported some morning anxiety upon wakening today, but says it was mild and not as bad as prior to admission. She was then able to get up and move through her morning routine and the anxiety resolved. She for says her mood is "flat", then elaborates to say it is not down or up, "just content." She reports her medication changes have been helpful. She has used Klonopin once a day over the past 3 days, Typically in the evening although yesterday was closer to lunchtime. Reports she is sleeping better. Denies nausea. No tremor. No dizziness or lightheadedness. She continues to deny suicidal thoughts. She is future oriented. She continues to have no psychotic symptoms, no symptoms of hypomania or carlton. Physical Exam Psychiatric Orientation: alert and oriented x 3 Apperance: appropriately dressed and appropriately groomed Eye Contact: good eye contact Motor Behavior: steady gait and station and no abnormal motor movements; n EPS and n akathisia Speech: normal rate/rhythm/volume of speech Affect: + constricted affect Constricted at first, then after discussing discharge affect was melchor in range and actually brightened some. Mood: + anxious mood Thought Process: goal directed thought process and linear/logical thought process Thought Content: no preoccupation, no obsessions and no delusions Future oriented. Suicidal Thoughts: denies suicidal thoughts, denies suicidal plan and denies roberts icidal intent Homicidal Thoughts: denies homicidal thoughts, denies homicidal plan and denies homicidal intent Hallucinations: no auditory hallucinations and no visual hallucinations Cognition: recent memory grossly intact, remote memory grossly intact, attention grossly intact and language grossly intact Estimated Intelligence: consistent with education level Insight: good insight Judgment: good judgement Vital Signs (Past 24 Hours) Last Vital Signs Temp 36.7 C 05/27/25 06:24 Pulse 71 05/27/25 06:24 Resp 16 05/27/25 06:24 BP 105/71 05/27/25 06:24 Pulse Ox 98 05/26/25 20:20 O2 Del Method Room Air 05/26/25 20:20 Results & Data ([facility]) Current Inpatient Medications Current Inpatient Medications: Current Inpatient Medications Acetaminophen (Acetaminophen 325 Mg Tab) 650 mg PO Q4H PRN PRN Reason: Headache or Minor Fever Stop: 06/24/25 12:46 Last Admin: 05/26/25 13:02 Dose: 650 mg Al Hydrox/Mg Hydrox/Simethicone (Aluminum/Magnesium Susp 30 Ml Udc) 30 ml PO Q4H PRN PRN Reason: GI Upset Stop: 06/24/25 12:46 Last Admin: 05/26/25 14:47 Dose: 30 ml Bismuth Subsalicylate (Bismuth Subsalicylate 262 Mg Chew) 2 tab PO Q30M PRN PRN Reason: Loose Stool/Diarrhea Stop: 06/24/25 12:46 Clonazepam (Clonazepam 0.5 Mg Tab) 0.5 mg PO BID PRN PRN Reason: panic attacks Stop: 06/24/25 15:26 Last Admin: 05/26/25 19:37 Dose: 0.5 mg Desvenlafaxine Succinate (Desvenlafaxine Succinate Er Tablet) 1 tab PO DAILY RAGINI Stop: 06/24/25 16:29 Last Admin: 05/26/25 09:27 Dose: 1 tab Hydroxyzine HCl (Hydroxyzine Hcl 25 Mg Tab) 50 mg PO HSZ PRN PRN Reason: Insomnia Stop: 06/24/25 12:46 Hydroxyzine HCl (Hydroxyzine Hcl 25 Mg Tab) 25 mg PO Q4H PRN PRN Reason: Anxiety Stop: 06/24/25 12:46 Carmine Carbonate (Carmine Carbonate 300 Mg Tab) 300 mg PO HS RAGINI Stop: 06/24/25 21:59 Last Admin: 05/26/25 20:52 Dose: 300 mg Magnesium Hydroxide (Magnesium Hydroxide Susp 30 Ml Udc) 30 ml PO DAILY PRN PRN Reason: Constipation Stop: 06/24/25 12:46 Mirtazapine (Mirtazapine Tab 15 Mg Tab) 15 mg PO HS RAGINI Stop: 06/24/25 21:59 Last Admin: 05/26/25 20:53 Dose: 15 mg Propranolol HCl (Propranolol Hcl 10 Mg Tab) 10 mg PO TID RAGINI Stop: 06/24/25 15:54 Last Admin: 05/26/25 20:53 Dose: 10 mg Sodium Chloride (Sodium Chloride 0.65% Na Soln 45 Ml ([place])) 1 - 2 sprays NA PRN PRN PRN Reason: Nasal Dryness/Congestion Stop: 06/24/25 12:46 Trimethoprim/Sulfamethoxazole (Sulfamethoxazole/Trimethoprim Ds 800/160mg Tab) 1 tab PO BID RAGINI Stop: 05/28/25 21:01 Last Admin: 05/26/25 20:53 Dose: 1 tab Mental Health & Subst Abuse Tx Psychiatrist Name of Psychiatrist: [facility] Psychiatrist's Date Of Appointment With Psychiatric Provider: NA Psychiatric Appointment Comment: Ariadna MENCHACA Therapist Name of Therapist: [facility] Therapist's Date of Therapist Appointment: 05/30/25 Time of Therapist Appointment: 7AM Therapy Appointment Comment: Link will be sent to your phone Shipmaster Name of Shipmaster: VINAYAK Post Discharge Appointments Primary Care Physician Name Of Family Doctor/PCP: Dr. Livingston through [facility] Primary Care Provider Appointment Comment: [address], [place] [address] Contact Information Discharge Discharge Address: [address] [place] [id number]
--- NOTE | 2025-05-28 10:15 | Discharge Summary ---
Date of Service May 28, 2025 History of Present Illness Depression and anxiety worsened starting about 2-3 weeks ago in the context of financial and work stress and some outstanding legal issues with owed back payments from her previous employment. SI started about two weeks ago with plans of cutting her carotid artery or overdosing on pills. She identifies target symptoms as: morning anxiety because this spirals throughout the day, the social isolation and being able to do normal daily tasks without freezing and getting caught in a snowball effect of not being able to do things like making phone calls. Her mood symptoms have spiraled to the point that she hasn't been able to go to work for the last week. She endorses depressive symptoms including tearfulness, anhedonia, increased irritability, decreased motivation, isolates and doesn't communicate, decreased attention to hygiene like brushing teeth nor showering, helplessness, hopelessness, decreased energy, decreased appetite, and frequent overnight awakenings with corn shucker awakenings around 3am/4am and nighttime awakenings and nightmares. SI has been occurring daily intermittently but have been intensifying and at times this feels like "the only option". She also endorses symptoms of anxiety including generalized worries, physical sensation of being dropped suddenly through the air, shakiness, easily overwhelmed and panic attacks at least daily. She is currently prescribed psychiatric medications: Wellbutrin XL 300mg daily (has been on this for 3-4 years), Pristiq 100mg daily (has been on this for 2 years), propranolol 10mg BID for anxiety, Klonopin 0.5mg daily prn for panic attacks and Seroquel 50mg HS prn for insomnia. Psychiatric ROS notable for history of going 1-2 nights without sleeping and gets a lot done, is very productive, gets a lot of big ideas, mood is elevated. No current nor history of symptoms of psychosis, PTSD, OCD. History of anorexia and bulimia as a teen, stable now. History of self-harm via cutting, last beginning of March. Physical Exam Vital Signs (Past 24 Hours) Last Vital Signs Temp 36.6 C 05/28/25 06:26 Pulse 75 05/28/25 08:59 Resp 16 05/28/25 06:26 BP 107/71 05/28/25 08:59 Pulse Ox 98 05/26/25 20:20 O2 Del Method Room Air 05/26/25 20:20 Principal Diagnosis Bipolar 2 disorder, Generalized anxiety disorder with panic attacks, Borderline personality disorder, urinary tract infection Psychiatric Data See daily stay summary. In short, safety was maintained and the patient was cooperative with care. She was newly diagnosed with both bipolar 2 disorder and borderline personality disorder. Medication changes included initiating lithium 300mg and mirtazapine 15mg at bedtime. Propranolol was increased to 10mg 3 times daily for anxiety, and they tolerated this well. Seroquel and Wellbutrin were discontinued. A family session was held and safety plan was completed prior to discharge. Day of Discharge Assessment Today the patient voices readiness for discharge. They note improvement in mood and deny thoughts to harm self or others. Thoughts remain organized and they are improved from admission. There is no evidence of psychosis. They agree to take mediations as prescribed and keep follow-up appointments. They are stable for discharge to outpatient level of care. Transition of Care Transition Of Care Record: was reviewed with the patient Advance Directives Advance Directives Information Provided: Yes Advance Directives: No Mental Health Advance Directive: No Advance Directives on File: No Living Will: No Power of Road Driver: No Advance Directives Reason:: Declines as Mental Health Visit. Suicide Risk Level Suicide Risk Level: Low (q15 min observation checks) Suicide Risk Level Comments: Suicide risk at discharge is deemed low as the patient is no longer requiring 24-hr monitoring, has a safety plan, and is free of suicidal ideation at discharge. Risk Factors Assessment Male: No : Yes Do You Have Access To A Gun?: No Health Problems: No Mental Health Diagnoses: Yes Substance Use Disorders: No Previous Attempt: Yes Family History of Suicide: No Previous Psychiatric Hospitalization: Yes Hopelessness: No Protective Factors Assessment Employed: Yes ([employer]) Stable Relationships: Yes Supportive Family: Yes Total Time Total Time Spent: Greater Than 30 Minutes Total Time Includes: Examination of the patient, Discharge Planning, Medication Reconciliation and Communication with other providers Discharge Data Lab Results 05/24/25 20:16 WBC 6.92 RBC 3.53 L Hgb 11.8 L Hct 34.5 L MCV 97.7 MCH 33.4 MCHC 34.2 RDW Std Deviation 45.7 RDW Coeff of Tamera 13.1 Plt Count 188 MPV 9.3 L Immature Gran % (Auto) 0.3 Neut % (Auto) 68.7 Lymph % (Auto) 23.4 Sebastian % (Auto) 5.9 Eos % (Auto) 1.0 Baso % (Auto) 0.7 Neut # (Auto) 4.75 Lymph # (Auto) 1.62 Sebastian # (Auto) 0.41 Eos # (Auto) 0.07 Baso # (Auto) 0.05 Immature Gran # (Auto) 0.02 Sodium 137 Potassium 3.7 Chloride 106 Carbon Dioxide 22 Anion Gap 9 BUN 7 Creatinine 0.57 L Est Cr Clr Drug Dosing 136.5 eGFR 122.98 BUN/Creatinine Ratio 12.3 Glucose 80 Calcium 9.6 Total Bilirubin 0.6 AST 25 ALT 18 Alkaline Phosphatase 45 Total Protein 7.2 Albumin 4.5 Globulin 2.7 Albumin/Globulin Ratio 1.7 TSH 1.594 HCG, Qual Negative Urine Color Yellow Urine Appearance Cloudy A Urine pH 6.5 Ur Specific [place] 1.006 Urine Protein Negative Urine Glucose (UA) Negative Urine Ketones 1+ H Urine Blood Negative Urine Nitrite Negative Urine Bilirubin Negative Urine Urobilinogen Negative Ur Leukocyte Esterase 3+ H Urine WBC (Auto) 21-50 H Urine RBC (Auto) 0-2 U Hyaline Cast (Auto) 0-2 U Epithel Cells (Auto) >20 H Urine Bacteria (Auto) 1+ H Urine Comment Salicylates < 3.0 L Urine Opiates Screen Neg Ur Methadone, Qual Neg Urine Fentanyl Screen Neg Acetaminophen < 3 L Urine Barbiturates Neg Ur Phencyclidine (PCP) Neg U Amphetamin/Meth Scrn Neg MDMA (Ecstasy) Screen Pos H U Benzodiazepines Scrn Neg Ur Cocaine Metabolite Neg U Marijuana (THC) Screen Neg Ethyl Alcohol mg/dL 24.7 H SARS-CoV-2, RNA, NAAT NEGATIVE Hospital Course (1) Bipolar 2 disorder: (2) Generalized anxiety disorder with panic attacks: (3) Borderline personality disorder: (4) UTI (urinary tract infection): Plan 05/28/25: Day of discharge. Pt reports some reasonable anxiety about the transition. No depression or SI. She slept 7 hours. No medication side effects reported or observed. Discussed tapering Klonopin usage over the next several weeks, since she's been using it daily while in hospital. She plans to return to work tomorrow. Urine culture final result - E Coli. Will continue Macrobid course. 05/27/25: Continues to tolerate medications well. No medication changes today. Seeing improvement in mood and anxiety, as well as sleep. Family meeting scheduled for tomorrow a.m., and will plan for discharge after. Weekend discharge due to risks to her job if she does not attend on Thursday. She is aware this may mean we need to call her with appointments for her follow-up. 05/26/2025: -Start Bactrim BID for 3 days 05/25/2025: The patient was admitted to the [facility] ([facility] mental health unit) on q15 min checks (behavioral with suicide precautions) for safety. The patient will participate in group, recreational, and milieu therapies and will be offered additional individual and family sessions as clinically appropriate. -Start [place] 300mg HS po -Start mirtazapine 15mg HS po -Increase propranolol 10mg TID po -Continue Pristiq 100mg daily -Discontinue Seroquel -Discontinue Wellbutrin -Symptom questionnaires: REDD, PHQ-9, LOPEZ-7, MDQ, Jack BPD Mental Health & Subst Abuse Tx Psychiatrist Name of Psychiatrist: [facility] Psychiatrist's Date Of Appointment With Psychiatric Provider: NA Psychiatric Appointment Comment: [address] Therapist Name of Therapist: [facility] Therapist's Date of Therapist Appointment: 05/30/25 Time of Therapist Appointment: 7AM Therapy Appointment Comment: Link will be sent to your phone Swaging Machine Adjuster Name of Swaging Machine Adjuster: NA Post Discharge Appointments Primary Care Physician Name Of Family Doctor/PCP: Dr. Livingston through [facility] Primary Care Provider Appointment Comment: [id number] [place] [address] N[address] Cross [id number] Contact Information Discharge Discharge Address: [address] [place] [id number] Discharge Plan Discharge Items Patient Disposition: Home - Self-Care Reason For Visit: BEHAVIORAL HEALTH CHECK IN AND UTI Discharge Diagnosis: Bipolar 2 disorder, Generalized anxiety disorder with panic attacks, Borderline personality disorder, urinary tract infection Condition on Discharge: Good Activity: Resume your previous activity Non-emergency contact: Primary Care Provider, Psychiatrist and Therapist Call non-emergency contact if: you have any medication questions and your symptoms worsen Follow-up/Referrals: PCP,NO [Primary Care Provider] - Diet: Regular Addtl Attending Provider Instructions: SPECIAL CARE INSTRUCTIONS: 1. Follow through with your scheduled aftercare appointments. If unable to keep an appointment, please call to reschedule. 2. Take your medication only as prescribed. Medication should not be changed or stopped without the approval of your doctor. In the event of worsening symptoms or concerns about side effects, contact your doctor immediately. 3. Utilize new healthy coping skills, anger management skills, and stress management skills learned during your hospitalization. Journal feelings and process them with a support person. Identify stressors or situations that may result in relapse, deterioration or inappropriate behaviors and develop a plan to deal with those issues. 4. If your coping skills are ineffective and you are in crisis, contact your outpatient providers for direction. If unable to reach your providers, please call the [facility] CRISIS LINE AT , go to the [facility] walk-in center at [address] [place] [address] A, [place], or go to the closest Emergency Room. 5. Avoid alcohol and un-prescribed drugs. 6. You have been provided with the Mental Health Advance Directives Pamphlet for your review. 7. Your condition is stable for discharge to outpatient level of care, but recovery is an ongoing process. Ifthoughts to harm yourself or others return, follow the safety plan developed during your stay. Planning for a safe return home includes securing weapons. Our treatment team recommends weaponsbe removed from the home until your outpatient provider reassesses your progress. In rare cases where the items themselvescannot be removed, guns and ammunitionshould be secured separatelyand keys stored by a reliable personoutside of the home. If you were admitted on an involuntary commitment, the police or other legal authorities may be involved in this process. AFTERCARE APPOINTMENTS: * Please call your insurance company prior to your scheduled appointment to confirm your aftercare providers are covered. Take your insurance information to your appointments. WHO TO CALL AND WHEN: Medical Emergencies: For questions or emergencies related to your hospital stay, please contact the Inpatient Behavioral Health Unit at [phone]. A production helper is on-call 30/03 for the Behavioral Health Unit for emergencies At any time you feel your situation is an emergency, you may also call 911 immediately. Pending Studies at Discharge: No Stand-Alone Forms: My [facility], Smoking Cessation Medications and DC Order Prescriptions: New sulfamethoxazole-trimethoprim [Bactrim DS] 800-160 mg Tablet 1 tab PO HS 1 Days Qty: 1 0RF clonazepam 0.5 mg Tablet See Rx Instructions .ROUTE .COMPLEX PRN (Reason: anxiety) Qty: 15 0RF Rx Instructions: 0.5 mg orally daily PRN anxiety x 1 week, then 0.5mg every other day PRN x 1 week, then can take 0.5mg twice a week PRN x 2 weeks. propranolol 10 mg Tablet 10 mg PO TID 30 Days Qty: 90 0RF mirtazapine 15 mg Tablet 15 mg PO HS 30 Days Qty: 30 0RF lithium carbonate 300 mg Tablet 300 mg PO HS 30 Days Qty: 30 0RF Continued desvenlafaxine 100 mg Tablet Extended Release 24 Hr 100 mg PO DAILY 30 Days Qty: 30 0RF Discontinued clonazepam 0.5 mg Tablet 0.5 mg PO 1XD PRN (Reason: Anxiety) propranolol 10 mg Tablet 10 mg PO BID bupropion HCl 300 mg Tablet Extended Release 24 Hr 300 mg PO DAILY quetiapine 50 mg Tablet 50 mg PO HS PRN (Reason: Sleep) Discharge Orders: Discharge Order (Routine); Ordered 05/28/25 Ordered By: Sherrill Solano Admission Data Admit Date/Time: 05/25/25 11:37 Attending Provider: Chandni Rebolledo Admit Provider: Chandni Rebolledo Primary Care Provider: PCP,MARK Coding Level of Care Code 34400 D/C day mgmt > 30 min Diagnoses Bipolar 2 disorder F31.81 Generalized anxiety disorder with panic attacks F41.1; F41.0 Borderline personality disorder F60.3 UTI (urinary tract infection) N39.0
[2025-05-28 17:57] LABS: MDA negative; MDEA negative; MDMA (Ecstasy) Urine, Confirm negative
== END 2025-05-28 11:00 | disposition home or self-care (01) | DRG 885 ==
LOC: ED 19:25 → 3S 05-25 12:35